=== PATIENT | male | born 1955 | race Caucasian/White ===

== ENCOUNTER 2021-08-22 12:36 | Emergency (ER) | payer BC ==
[2021-08-22 12:48] VITALS: BP 180/96; PULSE 70; TEMP 98.7; BMI 26.6
[2021-08-22] MEDS ORDERED: CASIRIVIMAB/IMDEVIMAB 10 ML in SODIUM CHLORIDE 100 ML IVPB ONE (13:38)
[2021-08-22 15:40] LABS: BASO % 0.6 % (0-2.0); EOS % 1.5 % (0-4.5); HEMATOCRIT 41.7 % (35.4-49); HEMOGLOBIN 13.7 GM/dL (11.7-16.9); LYMPH % 19.5 % (8-40); MCH 28.5 pg (25.7-33.7); MCHC 32.9 g/dl (32.0-35.9); MEAN CELL VOLUME 86.7 fl (80-96); MEAN PLT VOLUME 8.7 fl (7.5-11.1); MONO % 19.8 % (3.8-10.2); NEUT % 58.6 % (42.8-82.8); PLATELET COUNT 179 10^3/uL (134-434); RBC 4.81 M/mm3 (4.00-5.60); RDW 14.4 % (11.9-15.9); WHITE BLOOD COUNT 4.2 K/mm3 (4.0-10.0)
[2021-08-22 16:07] LABS: ALBUMIN 3.8 g/dl (3.4-5.0); BLOOD UREA NITROGEN 8.4 mg/dL (7-18)
[2021-08-22 16:10] LABS: CREATININE 0.9 mg/dL (0.55-1.3)
[2021-08-22 16:12] LABS: BILIRUBIN,TOTAL 0.5 mg/dL (0.2-1); TOT PROT 7.6 g/dl (6.4-8.2)
== END 2021-08-22 16:44 | disposition home or self-care (01) ==
LOC: JCOVINFU 12:36
DX: U07.1 COVID-19 (principal)
CPT/HCPCS: 36415; 80053; 85025; 99284-25; Q0240